=== PATIENT | male | born 1960 | race African-American/Black ===

== ENCOUNTER 2016-11-19 00:01 | Emergency (ER) | payer MEDICAID ==
[~2016-11-19] VITALS: Ht 182.9 cm; Wt 81.0 kg
[2016-11-19] MEDS ORDERED: KETOROLAC 60MG/2ML VIAL IM ONE (07:15)
[2016-11-19 09:00] VITALS: BP 137/87
== END 2016-11-19 10:16 | disposition home or self-care (01) ==
LOC: ER 06:02
DX: M25.562 Pain in left knee (principal); M54.2 Cervicalgia; R03.0 Elevated blood-pressure reading, without diagnosis of hypertension; F17.211 Nicotine dependence, cigarettes, in remission; L02.31 Cutaneous abscess of buttock; G89.29 Other chronic pain
CPT/HCPCS: 73562; 96372; 99284; J1885

== ENCOUNTER 2016-11-21 23:59 | Emergency (ER) | payer MEDICAID ==
[~2016-11-21] VITALS: Ht 195.6 cm; Wt 81.0 kg
[2016-11-22] MEDS ORDERED: BACITRACIN ZINC OINT UDPKT TOP ONE (00:45)
[2016-11-22] MEDS ORDERED: KETOROLAC 60MG/2ML VIAL IM ONE (00:45)
[2016-11-22 02:15] VITALS: BP 138/83
== END 2016-11-22 02:37 | disposition home or self-care (01) ==
LOC: ER 23:59
DX: S80.02XA Contusion of left knee, initial encounter (principal); F17.210 Nicotine dependence, cigarettes, uncomplicated; W19.XXXA Unspecified fall, initial encounter; Y93.89 Activity, other specified; Y92.89 Other specified places as the place of occurrence of the external cause; Y99.8 Other external cause status
CPT/HCPCS: 73562; 96372; 99284; J1885